=== PATIENT | female | born 1985 | race Two or more races ===

== ENCOUNTER → 2017-08-31 | Emergency (ER) | payer OTHER ==
[~2017-08-31] VITALS: Ht 165.1 cm; Wt 82.6 kg
[~2017-08-31] MED LIST: CLEOCIN HCL150 MG; PEPCID AC20 MG PO; PRENATAL VITAM1 EAC6 PO; TYLENOL32 MG/ML; ZOFRAN4 MG PO
== END | disposition home or self-care (01) ==
LOC: ER 10:09
DX: K29.70 Gastritis, unspecified, without bleeding (principal); Z33.1 Pregnant state, incidental

== ENCOUNTER 2018-11-10 09:21 | Emergency (ER) | payer OTHER ==
[~2018-11-10] VITALS: Ht 160 cm; Wt 68.0 kg
[2018-11-10] MEDS ORDERED: PREDNISONE10 MG PO (09:24)
[2018-11-10] MEDS ORDERED: ALBUTEROL1.25 MG/3 IH (09:24)
== END 2018-11-10 10:45 | disposition home or self-care (01) ==
LOC: ER 09:21
DX: B34.9 Viral infection, unspecified (principal)

== ENCOUNTER 2019-09-21 12:24 | Emergency (ER) | payer OTHER ==
[~2019-09-21] VITALS: Ht 152.4 cm; Wt 86.6 kg
[~2019-09-21 12:24] MED LIST changes: +ALBUTEROL1.25 MG/3 IH; +PREDNISONE10 MG PO
== END 2019-09-21 15:22 | disposition home or self-care (01) ==
LOC: ER 12:24
DX: B34.9 Viral infection, unspecified (principal)

== ENCOUNTER 2022-09-19 19:12 | Emergency (ER) | payer OTHER ==
[~2022-09-19] VITALS: Ht 144.8 cm; Wt 65.8 kg
[2022-09-19] MEDS ORDERED: CYMBALTA20 MG PO (20:26)
[2022-09-19] MEDS ORDERED: CLINDAMYCIN PH1 EACH TOP (22:41)
[2022-09-19] MEDS ORDERED: PEPCID AC20 MG PO (22:41)
[2022-09-19] MEDS ORDERED: ANTIBACTERIAL TOP (22:41)
[2022-09-19] MEDS ORDERED: KETO10TA2 PO (22:43)
== END 2022-09-19 23:01 | disposition home or self-care (01) ==
LOC: ER 19:12
DX: L73.2 Hidradenitis suppurativa (principal); R50.9 Fever, unspecified; R42 Dizziness and giddiness; R11.10 Vomiting, unspecified; J45.998 Other asthma; M79.7 Fibromyalgia; G40.802 Other epilepsy, not intractable, without status epilepticus

== ENCOUNTER 2022-11-21 18:54 | Emergency (ER) | payer OTHER ==
[~2022-11-21] VITALS: Ht 124.5 cm; Wt 63.5 kg
[~2022-11-21 18:54] MED LIST changes: +ANTIBACTERIAL TOP; +CLINDAMYCIN PH1 EACH TOP; +CYMBALTA20 MG PO; +KETO10TA2 PO
== END 2022-11-21 19:22 | disposition home or self-care (01) ==
LOC: ER 18:54
DX: T78.40XA Allergy, unspecified, initial encounter (principal)